=== PATIENT | male | born 1955 | race Caucasian/White ===

== ENCOUNTER 2017-08-30 15:38 | Emergency (ER) | payer OTHER ==
[~2017-08-30] VITALS: Ht 170.2 cm; Wt 89.4 kg
[2017-08-30] MEDS ORDERED: DIPHTH,PERTUSS(ACELL),TET TOX 0.5 ML DISP.SYRIN. VAX IM ONE (16:15)
--- NOTE | 2017-08-30 16:20 | RAD ---
EXAM: Left wrist, 3 views. HISTORY: Trauma. COMPARISON: None. FINDINGS: Frontal, lateral and oblique views of the left wrist are obtained. There is a 3 mm radiodense foreign body within the ulnar aspect of the distal forearm soft tissues. There is no acute fracture, dislocation or subluxation. There is a chronic corticated ossicle at the base of the fifth metacarpal. There is mild first metacarpal phalangeal spurring. There is third metacarpal head spurring. IMPRESSION: 1. 3 mm radiodense foreign body within the ulnar aspect of the distal forearm soft tissues. 2. No acute osseous finding. Electronically signed by: Essence Fuller MD (08/30/2017 4:16 PM) [facility]
[2017-08-30] MEDS ORDERED: CEPH-264 PO (16:29)
--- NOTE | 2017-08-30 16:29 | PHYS DOC ---
Past History Past Medical History: Diabetes, Hypertension Past Surgical History: No Surgical History Smoking: Cigarettes Alcohol Use: None Drug Use: None Adult General Chief Complaint Chief Complaint: LACERATION/AVULSION HPI HPI 61-year-old right-handed male patient states he heat his left forearm with a piece of wire while he was at work and had a puncture wound that was not able to stop the bleeding and thinks maybe something is inside of his wound. Patient denies focal neuro deficit and other injuries. Patient is not up-to-date with his tetanus immunization. Review of Systems Review of Systems Constitutional: Denies fever or chills [] Eyes: Denies change in visual acuity, redness, or eye pain [] HENT: Denies nasal congestion or sore throat [] Respiratory: Denies cough or shortness of breath [] Cardiovascular: No additional information not addressed in HPI [] GI: Denies abdominal pain, nausea, vomiting, bloody stools or diarrhea [] : Denies dysuria or hematuria [] Musculoskeletal: Denies back pain or joint pain [] Integument: Denies rash or skin lesions [] Neurologic: Denies headache, focal weakness or sensory changes [] Endocrine: Denies polyuria or polydipsia [] All other systems were reviewed and found to be within normal limits, except as documented in this note. Current Medications Current Medications Current Medications Medications (Trade) Dose Ordered Sig/Leonardo Start Time Stop Time Status Last Admin Dose Admin Diphtheria/ Tetanus/Acell Pertussis (Boostrix) 0.5 ml ONCE ONCE 08/30/17 16:15 08/30/17 16:16 DC 08/30/17 16:17 0.5 ML Allergies Allergies Allergies Coded Allergies Type Severity Reaction Last Updated Verified No Known Drug Allergies 08/30/17 No Physical Exam Physical Exam Constitutional: Well developed, well nourished, no acute distress, non-toxic appearance. [] HENT: Normocephalic, atraumatic Eyes: PERRLA, EOMI, conjunctiva normal, no discharge. [] Neck: Normal range of motion, no tenderness, supple, no stridor. [] Cardiovascular:Heart rate regular rhythm, no murmur [] Lungs & Thorax: Bilateral breath sounds clear to auscultation [] Extremities: 0.5 cm puncture wound in ulnar side of distal left forearm with mild bleeding that stopped with pressure dressing. No tenderness, no cyanosis, no clubbing, ROM intact, no edema. [] Neurologic: Alert and oriented X 3, normal motor function, normal sensory function, no focal deficits noted. [] Psychologic: Affect normal, judgement normal, mood normal. [] Current Patient Data Vital Signs Vital Signs Date Time Temp Pulse Resp B/P (MAP) Pulse Ox O2 Delivery O2 Flow Rate FiO2 08/30/17 15:40 99.1 114 20 97 Room Air EKG EKG [] Radiology/Procedures Radiology/Procedures [][address] [address] IMAGING REPORT Signed PATIENT: DREW GUILLAUME ACCOUNT: [id number] : 1955 LOCATION: ER AGE: 61 SEX: M EXAM STATUS: PRE ER ORD. PHYSICIAN: ARGENTINA SILVA MD REASON: puncture wound, evaluation for foreign body PROCEDURE: WRIST 3V LEFT EXAM: Left wrist, 3 views. HISTORY: Trauma. COMPARISON: None. FINDINGS: Frontal, lateral and oblique views of the left wrist are obtained. There is a 3 mm radiodense foreign body within the ulnar aspect of the distal forearm soft tissues. There is no acute fracture, dislocation or subluxation. There is a chronic corticated ossicle at the base of the fifth metacarpal. There is mild first metacarpal phalangeal spurring. There is third metacarpal head spurring. IMPRESSION: 1. 3 mm radiodense foreign body within the ulnar aspect of the distal forearm soft tissues. 2. No acute osseous finding. Electronically signed by: Essence Blevins MD (08/30/2017 4:16 PM) [facility] DICTATED AND SIGNED BY: ESSENCE BLEVINS MD DATE: 08/30/17 0530 CC: BEATA PATRICK MD; ARGENTINA SILVA MD ~ Course & Med Decision Making Course & Med Decision Making Pertinent Imaging studies reviewed. (See chart for details) Evaluation of patient in ER showed 61-year-old male patient with puncture wound of left distal forearm with mild bleeding that stopped with pressure dressing. Patient had a 3 mm metal foreign body in deep tissue and unable to remove the foreign body with one time try. Dressing was applied and patient instructed to follow with his primary care physician or work comp. Orestes Disclaimer Dragon Disclaimer This electronic medical record was generated, in whole or in part, using a voice recognition dictation system. Departure Departure: Impression: Primary Impression: Puncture wound with foreign body Disposition: HOME, SELF-CARE (At 1625) Condition: IMPROVED Referrals: BEATA PATRICK MD (PCP) Patient Instructions: Puncture Wound Additional Instructions: Follow-up with work comp or your physician regarding metallic foreign body Return to ER if not getting better Scripts Cephalexin (KEFLEX) 500 Mg Capsule 1 CAP PO TID, #21 CAP Prov: ARGENTINA SILVA MD 08/30/17 ARGENTINA SILVA MD Aug 30, 2017 16:29
[2017-08-30 16:30] VITALS: BP 107/79
== END 2017-08-30 16:40 | disposition home or self-care (01) ==
LOC: ER 15:38
DX: S51.842A Puncture wound with foreign body of left forearm, initial encounter (principal); E11.9 Type 2 diabetes mellitus without complications; I10 Essential (primary) hypertension; F17.210 Nicotine dependence, cigarettes, uncomplicated; X58.XXXA Exposure to other specified factors, initial encounter; Y93.89 Activity, other specified; Y99.8 Other external cause status; Y92.89 Other specified places as the place of occurrence of the external cause
CPT/HCPCS: 73110; 90471; 90715; 99284-25